=== PATIENT | male | born 2000 | race Caucasian/White ===

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

== ENCOUNTER 2018-11-06 16:52 | Emergency (ER) | payer OTHER ==
--- NOTE | 2018-11-06 17:23 | UC ---
Back Pain HPI - HPI Summary HPI Summary: 18 year old male presents with 3-4 day history of lower back pain. Describes pain as a constant ache. Worsens with bending, twisting, movement. Denies alleviating factors. Has not taken any OTC analgesics. Denies fever, chills, rash, abdominal pain, nausea, vomiting, dysuria, frequency, urgency, or hematuria. - History of Current Complaint Stated Complaint: LOWER BACK PAIN Time Seen by Provider: 11/06/18 17:21 Hx Obtained From: Patient - Allergies/Home Medications Allergies/Adverse Reactions: Allergies Allergy/AdvReac Type Severity Reaction Status Date / Time No Known Allergies Allergy Verified 11/06/18 17:34 Home Medications: Home Medications NK [No Home Medications Reported] 11/06/18 [History Confirmed 11/06/18] PMH/Surg Hx/FS Hx/Imm Hx Previously Healthy: Yes - Denies significant PMH - Surgical History Surgical History: None - Family History Known Family History: Positive: Respiratory Disease - father Negative: Hypertension, Diabetes - Social History Occupation: Student Lives: Dormitory/Roommates Alcohol Use: None Substance Use Type: None Smoking Status (MU): Never Smoked Tobacco Household Exposure Type: Cigarettes - Immunization History Most Recent Influenza Vaccination: NONE Most Recent Tetanus Shot: UTD Vaccination Up to Date: Yes Review of Systems All Other Systems Reviewed And Are Negative: Yes Constitutional: Negative: Fever, Chills Skin: Negative: Rash Respiratory: Negative: Shortness Of Breath, Cough Cardiovascular: Negative: Palpitations, Chest Pain Gastrointestinal: Negative: Abdominal Pain, Vomiting, Diarrhea, Nausea Genitourinary: Negative: Dysuria, Hematuria, Frequency, Urgency Motor: Negative: Weakness Neurovascular: Negative: Decreased Sensation Musculoskeletal: Positive: Other: - See HPI Neurological: Positive: Negative Is Patient Immunocompromised?: No Physical Exam - Summary Physical Exam Summary: GENERAL APPEARANCE: Well developed, well nourished, alert and cooperative, and appears to be in no acute distress. NECK: Neck supple, non-tender. Full ROM. CARDIAC: Normal S1 and S2. No S3, S4 or murmurs. Rhythm is regular. There is no peripheral edema, cyanosis or pallor. Extremities are warm and well perfused. Capillary refill is less than 2 seconds. Peripheral pulses intact. LUNGS: Clear to auscultation without rales, rhonchi, wheezing or diminished breath sounds. ABDOMEN: Positive bowel sounds. Soft, nondistended, nontender. No guarding or rebound. No masses or hepatosplenomegally. No CVA tenderness. MUSKULOSKELETAL: ROM intact to all extremities. No joint erythema or tenderness. Normal muscular development. Normal gait. BACK: Examination of the spine reveals normal posture. No midline spinal deformity or tenderness. Mild paraspinous tenderness of the upper lumbar back without muscular spasm. NEUROLOGICAL: Strength and sensation symmetric and intact to lower extremities. SKIN: Skin normal color, texture and turgor with no lesions or eruptions. Triage Information Reviewed: Yes Vital Signs Reviewed: Yes Back Pain Course/Dx - Course Course Of Treatment: 18 year old male presents with 3-4 day history of lower back pain. Describes pain as a constant ache. Worsens with bending, twisting, movement. Denies alleviating factors. Has not taken any OTC analgesics. Denies fever, chills, rash, abdominal pain, nausea, vomiting, dysuria, frequency, urgency, or hematuria. Afebrile. VSS. Exam remarkable for normal posture, no midline spinal deformity or tenderness, mild paraspinous tenderness of the upper lumbar back without muscular spasm. Recommending conservative treatment for acute musculoskeletal low back pain including naproxen 500 mg BID, cyclobenzaprine 1 tab every 8 hours PRN, and heat therapy. He is to follow up with his PCP in 7 days if no improvement. Anticipatory guidance and warning symptoms reviewed with patient. Verbalizes understanding and agrees with POC. - Differential Dx/Diagnosis Differential Diagnosis/HQI/PQRI: Herniated Disc, Renal Colic, Strain Provider Diagnosis: Acute low back pain Discharge - Sign-Out/Discharge Documenting (check all that apply): Patient Departure All imaging exams completed and their final reports reviewed: No Studies - Discharge Plan Condition: Stable Disposition: HOME Patient Education Materials: Acute Low Back Pain (ED) Forms: *School Release Referrals: Kala Montalvo PA [Primary Care Provider] - 7 Days (If no improvement in symptoms.) Additional Instructions: Your history and exam are consistent with musculoskeletal back pain. Take naproxen 500 mg 1 tab every 12 hours for the next 5-7 days then take every 12 hours as needed. Use cyclobenzaprine (Flexeril) 1 tab every 8 hours as needed for severe pain or spasm. This will cause drowsiness so do not take and drive or operate machinery. Do drink alcohol while using. Apply a heating pad to the affected area for 15-20 minutes at least 4 times a day to help relax the muscles and improve pain. Follow up with your primary care provider in 7 days if no improvement in symptoms. Seek immediate medical attention in the emergency room if you have worsening pain despite taking pain medication, develop numbness, tingling, or weakness in the lower extremities, have difficulty standing or walking, lose control of your bowel or bladder, or have any worsening of symptoms. - Billing Disposition and Condition Condition: STABLE Disposition: Home
[2018-11-06 17:40] VITALS: BP 117/64
== END 2018-11-06 17:52 | disposition home or self-care (01) ==
LOC: UCCORT 16:52
DX: M54.5 Low back pain (principal)
CPT/HCPCS: 99212; G0463

== ENCOUNTER 2019-02-05 11:18 | Emergency (ER) | payer OTHER ==
[2019-02-05 12:26] VITALS: BP 107/67
--- NOTE | 2019-02-05 12:38 | UC ---
General HPI - HPI Summary HPI Summary: per triage,1. compaints of sore throat, sharp pain, for past day. 2. noticed lump on left breast for past several months. 1. no fever, uri. 2. states been there x 2 months with no changes. - History of Current Complaint Chief Complaint: UCGeneralIllness Stated Complaint: SORE THROAT Time Seen by Provider: 02/05/19 12:31 Hx Obtained From: Patient Pain Intensity: 7 - Allergy/Home Medications Allergies/Adverse Reactions: Allergies Allergy/AdvReac Type Severity Reaction Status Date / Time No Known Allergies Allergy Verified 02/05/19 12:26 PMH/Surg Hx/FS Hx/Imm Hx Previously Healthy: Yes - Surgical History Surgical History: None - Family History Known Family History: Positive: Respiratory Disease - father Negative: Hypertension, Diabetes - Social History Alcohol Use: None Substance Use Type: None Smoking Status (MU): Never Smoked Tobacco Household Exposure Type: Cigarettes - Immunization History Most Recent Influenza Vaccination: NONE Most Recent Tetanus Shot: UTD Vaccination Up to Date: Yes Review of Systems All Other Systems Reviewed And Are Negative: Yes Constitutional: Negative: Fever, Chills Skin: Positive: Other - spot L breast Eyes: Negative: Drainage, Eye Redness ENT: Positive: Sore Throat. Negative: Ear Ache, Nasal Discharge Respiratory: Negative: Shortness Of Breath, Cough Physical Exam Triage Information Reviewed: Yes Appearance: Well-Appearing Vital Signs: Initial Vital Signs Temp 98.5 F 02/05/19 12:21 Pulse 84 02/05/19 12:21 Resp 16 02/05/19 12:21 BP 107/67 02/05/19 12:21 Pulse Ox 99 02/05/19 12:21 Vital Signs Reviewed: Yes Eyes: Positive: Conjunctiva Clear ENT: Positive: Pharyngeal erythema - slight, TMs normal, Uvula midline. Negative: Nasal congestion, Nasal drainage, Trismus, Muffled voice, Hoarse voice Neck: Positive: Supple, Nontender, No Lymphadenopathy Respiratory: Positive: Lungs clear, Normal breath sounds Cardiovascular: Positive: RRR, No Murmur Abdomen Description: Positive: Nontender, No Organomegaly, Soft, Other: - No inguinal adenopathy. Bowel Sounds: Positive: Present Musculoskeletal: Positive: ROM Intact Neurological: Positive: Alert Psychological: Positive: Age Appropriate Behavior Skin Exam: Normal, Other - 3mm lump to the left of L areola. non tender, not fluctuant and not fixed. Rest of bilateral breast exam shows no dimples, lumps or skin discoloration. pt has no clavicular, axillary, epitrochlear or inguinal adenopathy. Diagnostics - Laboratory Lab Results: rapid strep=negative Course/Dx - Differential Dx - Multi-Symptom Differential Diagnoses: Other - rapid strep=negative, no antibiotic tx for the pahryngitis. I think the lump is probably a benign skin lesion/cyst; however, I am going to refer him to a surgeon for an exam and definitive diagnosis to exclude any CA. - Diagnoses Provider Diagnosis: Skin lesion of breast, Pharyngitis Discharge - Sign-Out/Discharge Documenting (check all that apply): Patient Departure All imaging exams completed and their final reports reviewed: No Studies - Discharge Plan Condition: Stable Disposition: HOME Patient Education Materials: Pharyngitis (ED), Breast Mass (ED) Referrals: Genesis Montalvo PA [Primary Care Provider] - Nawaf Mccormick [Medical Doctor] - Additional Instructions: FOLLOW UP WITH [facility] IF SORE THROAT NOT BETTER IN 5 DAYS OR SOONER IF WORSE. FOLLOW UP WITH DR MCCORMICK(SURGEON) FOR THE LEFT BREAST SKIN LESION. CALL IN AM TO BE SEEN SOON POSSIBLE.. - Billing Disposition and Condition Condition: STABLE Disposition: Home - Attestation Statements Provider Attestation: I was available for consult. This patient was seen by the CLAUDTETE. The patient was not presented to , seen by or examined by mo -Chico Quick MD
== END 2019-02-05 12:48 | disposition home or self-care (01) ==
LOC: UCCORT 11:18
DX: L98.9 Disorder of the skin and subcutaneous tissue, unspecified (principal); J02.9 Acute pharyngitis, unspecified
CPT/HCPCS: 87651; 99211; G0463

== ENCOUNTER 2019-02-07 16:45 | Emergency (ER) | payer OTHER ==
[2019-02-07 17:00] VITALS: BP 136/62
--- NOTE | 2019-02-07 17:18 | ED ---
Throat Pain/Nasal Congestion - HPI Summary HPI Summary: 18 yr old male with the complaint of left jaw and face pain. He states several hours ago he had a nerve block for a dental filling. He states the numbness i gone, but he has pain along the left side of jaw and up to the left forehead area. No swelling. No fever, no other complaints. - History of Current Complaint Chief Complaint: UCDentalProblem Time Seen by Provider: 02/07/19 17:01 - Allergies/Home Medications Allergies/Adverse Reactions: Allergies Allergy/AdvReac Type Severity Reaction Status Date / Time No Known Allergies Allergy Verified 02/07/19 16:52 PMH/Surg Hx/FS Hx/Imm Hx Infectious Disease History: Yes Infectious Disease History: Denies: History Other Infectious Disease, Traveled Outside the [place] in Last 30 Days - Family History Known Family History: Positive: Respiratory Disease - father Negative: Hypertension, Diabetes - Social History Alcohol Use: None Substance Use Type: Reports: None Smoking Status (MU): Never Smoked Tobacco Review of Systems Positive: Dental Pain All Other Systems Reviewed And Are Negative: Yes Physical Exam Triage Information Reviewed: Yes Vital Signs On Initial Exam: Initial Vitals Temp Pulse Resp BP Pulse Ox 98.4 F 92 16 136/62 100 02/07/19 16:53 02/07/19 16:53 02/07/19 16:53 02/07/19 16:53 02/07/19 16:53 Vital Signs Reviewed: Yes Appearance: Positive: Well-Appearing, No Pain Distress Skin: Positive: Warm Head/Face: Positive: Normal Head/Face Inspection Eyes: Positive: EOMI, VINCE ENT: Positive: Normal ENT inspection, Pharynx normal, TMs normal, Other - teeth appear WNL. NO gingival swelling. The site for the inferior alveolar nerve block on the left side is without swelling. He speaks with a clear voice. Neck: Positive: Supple, Nontender, No Lymphadenopathy Respiratory/Lung Sounds: Positive: Clear to Auscultation, Breath Sounds Present Cardiovascular: Positive: RRR. Negative: Murmur Abdomen Description: Negative: Distended Musculoskeletal: Positive: Strength/ROM Intact Neurological: Positive: Sensory/Motor Intact, Alert, Oriented to Person Place, Time, CN Intact II-III, Normal Gait, Speech Normal Psychiatric: Positive: Normal - Daniel Coma Scale Best Eye Response: 4 - Spontaneous Best Motor Response: 6 - Obeys Commands Best Verbal Response: 5 - Oriented Coma Scale Total: 15 Diagnostics - Vital Signs Vital Signs Temp Pulse Resp BP Pulse Ox 02/07/19 16:53 98.4 F 92 16 136/62 100 - Laboratory Lab Statement: Any lab studies that have been ordered have been reviewed, and results considered in the medical decision making process. EENT Course/Dx - Course Course Of Treatment: 18 yr old with pain after nerve block in distribution of the trigeminal nerve. It is likely that the nerve has been irritated, and the effects of this are being felt after the medication has worn off. I have told the patient to call his dentist tomorrow to inform. Any worsening symptoms he should go to the Er. - Diagnoses Provider Diagnoses: Trigeminal nerve injury Discharge - Sign-Out/Discharge Documenting (check all that apply): Patient Departure All imaging exams completed and their final reports reviewed: No Studies - Discharge Plan Condition: Good Disposition: HOME Patient Education Materials: Paresthesia (ED) Forms: *Work Release Referrals: Kala Montalvo PA [Primary Care Provider] - 1 Day - Billing Disposition and Condition Condition: GOOD Disposition: Home
== END 2019-02-07 17:19 | disposition home or self-care (01) ==
LOC: UCCORT 16:45
DX: S04.30XA Injury of trigeminal nerve, unspecified side, initial encounter (principal); Y65 Other misadventures during surgical and medical care; Y70.1 Therapeutic (nonsurgical) and rehabilitative anesthesiology devices associated with adverse incidents; Y92.9 Unspecified place or not applicable; Y93.89 Activity, other specified
CPT/HCPCS: 99211; G0463

== ENCOUNTER 2019-09-20 16:11 | Emergency (ER) | payer OTHER ==
[2019-09-20 16:53] VITALS: BP 100/75
--- NOTE | 2019-09-20 17:08 | UC ---
Throat Pain/Nasal Luis HPI - HPI Summary HPI Summary: 19 y/o male presents to the urgent care c/o Throat "discomfort" and irritation since Wednesday. Occasional cough. Pt denies fever, congestion. - History of Current Complaint Chief Complaint: UCGeneralIllness Stated Complaint: SORE THROAT Time Seen by Provider: 09/20/19 17:05 Hx Obtained From: Patient Onset/Duration: Gradual Onset Pain Intensity: 3 - Allergies/Home Medications Allergies/Adverse Reactions: Allergies Allergy/AdvReac Type Severity Reaction Status Date / Time No Known Allergies Allergy Verified 09/20/19 16:51 Home Medications: Home Medications NK [No Home Medications Reported] 11/06/18 [History Confirmed 09/20/19] PMH/Surg Hx/FS Hx/Imm Hx - Surgical History Surgical History: None - Family History Known Family History: Positive: Respiratory Disease - father Negative: Hypertension, Diabetes - Social History Alcohol Use: None Substance Use Type: None Smoking Status (MU): Never Smoked Tobacco Household Exposure Type: Cigarettes - Immunization History Most Recent Influenza Vaccination: NONE Most Recent Tetanus Shot: UTD Vaccination Up to Date: Yes Physical Exam - Summary Physical Exam Summary: VITAL SIGNS: Reviewed. GENERAL: Patient is a well developed and nourished male who is sitting comfortably in the examining table. Patient is not in any acute respiratory distress. HEAD AND FACE: No signs of trauma. No ecchymosis, hematomas or skull depressions. No sinus tenderness. EYES: PERRLA, EOMI x 2, No injected conjunctiva, no nystagmus. No photophobia. EARS: Hearing grossly intact. Ear canals and tympanic membranes are within normal limits. MOUTH: Positive pharynx with mild erythema, no exudates, No B/L tonsillar enlargement , no exudate. Uvula in midline. edematous nasal mucosa w/ clear nasal discharge, clear PND NECK: Supple, trachea is midline, Positive anterior cervical lymphadenopathy, no JVD, no carotid bruit, no c-spine tenderness, neck with full ROM. No meningeal signs, no Kernig's or brudzinskis signs. CHEST: Symmetric, no tenderness at palpation LUNGS: Clear to auscultation bilaterally. No wheezing or crackles. CVS: Regular rate and rhythm, S1 and S2 present, no murmurs or gallops appreciated. ABDOMEN: Soft, non-tender. No signs of distention. No rebound no guarding, and no masses palpated. Bowel sounds are normal. EXTREMITIES: FROM in all major joints, no edema, no cyanosis or clubbing. NEURO: Alert and oriented x 3. No acute neurological deficits. Pt follows commands. SKIN: Dry and warm Triage Information Reviewed: Yes Vital Signs: Initial Vital Signs Temp 98.5 F 09/20/19 16:51 Pulse 75 09/20/19 16:51 Resp 16 09/20/19 16:51 BP 100/75 09/20/19 16:51 Pulse Ox 96 09/20/19 16:51 Throat Pain/Nasal Course/Dx - Differential Dx/Diagnosis Differential Diagnosis/HQI/PQRI: Influenza, Laryngitis, Mononucleosis, Otitis Media, Pharyngitis, Sinusitis, Tonsillitis, URI Provider Diagnosis: Acute viral pharyngitis, Right ear impacted cerumen Discharge ED - Sign-Out/Discharge Documenting (check all that apply): Patient Departure - D/C home All imaging exams completed and their final reports reviewed: No Studies - Discharge Plan Condition: Stable Disposition: HOME Patient Education Materials: Pharyngitis (ED), Cerumen Impaction (ED) Referrals: Kala Montalvo PA [Primary Care Provider] - 3 Days Additional Instructions: 1-Please take ibuprofen PO q6-8hrs prn as instructed after meals to alleviate pain and swelling. Increase fluid intake, eat well, rest and avoid strenuous exercise 2-If symptoms do not improve or worsen please return to the urgent care or f/u with your PCP for further evaluation and treatment. 3- Rapid strep: negative - Billing Disposition and Condition Condition: STABLE Disposition: Home
== END 2019-09-20 17:49 | disposition home or self-care (01) ==
LOC: UCCORT 16:11
DX: J02.8 Acute pharyngitis due to other specified organisms (principal); H61.21 Impacted cerumen, right ear
CPT/HCPCS: 87651; 99212; G0463